=== PATIENT | female | born 1980 | race African-American/Black ===

== ENCOUNTER 2022-03-10 13:12 | Observation (INO) | payer OTHER ==
[2022-03-10 15:52] LABS: EOS % 2.9 % (0-4.5); LYMPH % 40.1 % (8-40); MCH 15.9 pg (25.7-33.7); MCHC 27.7 g/dl (32.0-36.0); MEAN CELL VOLUME 57.4 fl (80-96); MEAN PLT VOLUME 8.5 fl (7.5-11.1); MONO % 6.7 % (3.8-10.2); NEUT % 49.3 % (42.8-82.8); PLATELET COUNT 236 10^3/uL (134-434); RBC 3.14 M/mm3 (3.60-5.2); RDW 20.2 % (11.6-15.6); WHITE BLOOD COUNT 3.4 K/mm3 (4.0-10.0)
[2022-03-10 16:19] LABS: CALCIUM 9.5 mg/dL (8.5-10.1)
[2022-03-10 16:20] LABS: ALBUMIN 3.4 g/dl (3.4-5.0); BLOOD UREA NITROGEN 8.3 mg/dL (7-18)
[2022-03-10 16:23] LABS: CREATININE 0.5 mg/dL (0.55-1.3)
[2022-03-10 16:25] LABS: BILIRUBIN,TOTAL 0.3 mg/dL (0.2-1); TOT PROT 7.2 g/dl (6.4-8.2)
[2022-03-10 19:21] LABS: ANISOCYTOSIS 1+; MACROCYTOSIS 0; PLATELET ESTIMATE NORMAL
[2022-03-10] MEDS ORDERED: IRON SUCROSE INJECTION 300 MG in SODIUM CHLORIDE 235 ML IVPB ONE (21:09)
[2022-03-10 23:46] VITALS: BMI 32.4
[2022-03-11 08:19] LABS: BASO % 1.2 % (0-2.0); EOS % 1.8 % (0-4.5); HEMATOCRIT 23.1 % (32.4-45.2); LYMPH % 29.8 % (8-40); MCHC 29.5 g/dl (32.0-36.0); MEAN CELL VOLUME 63.6 fl (80-96); MEAN PLT VOLUME 9.1 fl (7.5-11.1); MONO % 6.7 % (3.8-10.2); NEUT % 60.5 % (42.8-82.8); PLATELET COUNT 204 10^3/uL (134-434); RBC 3.63 M/mm3 (3.60-5.2); RDW 26.1 % (11.6-15.6); WHITE BLOOD COUNT 3.8 K/mm3 (4.0-10.0)
[2022-03-11 08:20] LABS: MCH 18.7 pg (25.7-33.7)
[2022-03-11 08:21] LABS: HEMOGLOBIN 6.8 GM/dL (10.7-15.3)
[2022-03-11 08:58] LABS: CALCIUM 8.5 mg/dL (8.5-10.1)
[2022-03-11 08:59] LABS: BLOOD UREA NITROGEN 11.8 mg/dL (7-18); MAGNESIUM 2.2 mg/dL (1.8-2.4)
[2022-03-11 09:02] LABS: CREATININE 0.5 mg/dL (0.55-1.3); PHOSPHOROUS 3.2 mg/dL (2.5-4.9)
[2022-03-12 09:20] LABS: BASO % 0.8 % (0-2.0); EOS % 2.2 % (0-4.5); HEMATOCRIT 29.3 % (32.4-45.2); HEMOGLOBIN 9.5 GM/dL (10.7-15.3); LYMPH % 21.2 % (8-40); MCH 22.9 pg (25.7-33.7); MCHC 32.4 g/dl (32.0-36.0); MEAN CELL VOLUME 70.6 fl (80-96); MONO % 6.3 % (3.8-10.2); NEUT % 69.5 % (42.8-82.8); PLATELET COUNT 171 10^3/uL (134-434); RBC 4.15 M/mm3 (3.60-5.2); WHITE BLOOD COUNT 4.5 K/mm3 (4.0-10.0)
[2022-03-12 09:52] VITALS: RESP 18
[2022-03-12] MEDS: FERROUS SO4 325 MG TABLET (FP) PO SCH (11:06)
[2022-03-13 09:03] VITALS: BP 142/79; PULSE 77; TEMP 98.7
[2022-03-13 09:21] LABS: HEMATOCRIT 31.8 % (32.4-45.2); MCH 21.7 pg (25.7-33.7); MCHC 31.4 g/dl (32.0-36.0); MEAN CELL VOLUME 69.3 fl (80-96); MEAN PLT VOLUME 9.7 fl (7.5-11.1); PLATELET COUNT 184 10^3/uL (134-434); RBC 4.59 M/mm3 (3.60-5.2); RDW 28.9 % (11.6-15.6)
[2022-03-13] MEDS: FERROUS SO4 325 MG TABLET (FP) PO SCH ×2 (10:15→10:16)
[2022-03-13 11:32] LABS: ANISOCYTOSIS 2+; MACROCYTOSIS 0
== END 2022-03-13 13:14 | disposition home or self-care (01) ==
LOC: JER 13:12 → JERBED 15:32 → J7W 20:49
PROVIDERS: ADMIT Internal Medicine; ATTEND Internal Medicine
PROC: 30233N1 Transfusion of Nonautologous Red Blood Cells into Peripheral Vein, Percutaneous Approach (ICD-10-PCS; principal; 2022-03-10)
DX: D25.9 Leiomyoma of uterus, unspecified (principal); D63.8 Anemia in other chronic diseases classified elsewhere; D50.9 Iron deficiency anemia, unspecified; Z29.8 Encounter for other specified prophylactic measures
CPT/HCPCS: 36415; 36430; 71045-TC-FY; 80048; 80053; 83735; 84100; 84703; 85025; 86850; 86900; 86901; 86922; 93005; 93010; 99285-25; C9803-CS; G0378; J1756; P9058; U0003; U0005

== ENCOUNTER 2024-10-10 09:04 | Day surgery (SDC) | payer BC ==
[2024-10-10] MEDS: IRON SUCROSE INJECTION 200 MG in SODIUM CHLORIDE 100 ML IVPB ONE (09:25)
[2024-10-10 09:43] VITALS: RESP 18; TEMP 97.7
[2024-10-10 10:28] VITALS: BP 124/68; PULSE 87
== END 2024-10-10 10:25 | disposition home or self-care (01) ==
LOC: JONCNONCHE 09:04
PROVIDERS: ATTEND Internal Medicine Hematology & Oncology
PROC: 3E033GC Introduction of Other Therapeutic Substance into Peripheral Vein, Percutaneous Approach (ICD-10-PCS; principal; 2024-10-10)
DX: D50.9 Iron deficiency anemia, unspecified (principal)
CPT/HCPCS: 96365; J1756

== ENCOUNTER 2024-10-17 09:27 | Day surgery (SDC) | payer BC ==
[2024-10-17] MEDS: IRON SUCROSE COMPLEX 200 MG in SODIUM CHLORIDE 100 ML IVPB ONE (10:10)
[2024-10-17 10:25] VITALS: TEMP 98.1
[2024-10-17 14:30] VITALS: BP 121/76; PULSE 74; RESP 20
== END 2024-10-17 11:15 | disposition home or self-care (01) ==
LOC: JONCNONCHE 09:27
PROVIDERS: ATTEND Internal Medicine Hematology & Oncology
PROC: 3E033GC Introduction of Other Therapeutic Substance into Peripheral Vein, Percutaneous Approach (ICD-10-PCS; principal; 2024-10-17)
DX: D50.9 Iron deficiency anemia, unspecified (principal)